=== PATIENT | female | born 1960 | race Caucasian/White ===

== ENCOUNTER 2017-12-09 05:43 | Day surgery (SDC) | payer OTHER ==
[~2017-12-09] VITALS: Ht 162.6 cm; Wt 96.2 kg
--- NOTE | ~2017-12-09 | PATH ---
[facility] [address] [place] [address] PATHOLOGY RPT PROCEDURE Name: RANCHO ALCAZAR Room #: DEP [facility].#: [id number] Admission: 12/09/17 Date of : 60 Discharge: 12/10/17 Report #: [id number] Path Case #: [id number] [facility] Accession Number: [id number] . 01 Material submitted: . RIGHT INFERIOR PARATHYROID ADENOMA - FS . 01 Clinical history: . Hyperparathyroidism . 02 Diagnosis: Parathyroid, right inferior parathyroid adenoma, parathyroidectomy: - Consistent with a parathyroid adenoma, 1.2 grams. - Completely excised. (IUV/db; 12/09/17) LBQ/12/12/2017 . 02 Electronically signed: . Lisa Billy MD, Pathologist NPI- [id number] . 01 Gross description: . Received fresh from the OR labeled with the patient's name, and "right inferior parathyroid adenoma" consists of a 1.2 gram oval red-brown tissue with a shiny capsule measuring 2.0 x 1.2 x 0.6 cm. The capsule is inked black and at this point subsequently serially sectioned and a payable representative section is submitted for frozen section as FSA1, this is subsequently submitted for permanent sections as A1. The unfrozen portion of the specimen is submitted entirely as A2. (IUV:pit 12/12/2017) . Frozen section diagnosis: FSA1, Right inferior parathyroid adenoma, excision: - 1.2 gram hypercellular parathyroid tissue. - These findings are discussed with Dr. Chad Payton in OR 1 at [facility] and a written report is placed in the patient's chart. . Frozen section performed by Dr. Lisa Billy at [facility], [address] [place] [address]. / . 02 Pathologist provided ICD-10: D35.1 . 02 CPT . 374150, [id number] [place] [address] PATHOLOGY RPT PROCEDURE Name: RANCHO ALCAZAR Room #: DEP [facility]#: [id number] Admission: 12/09/17 Date of : 60 Discharge: 12/10/17 Report #: [id number] Path Case #: [id number] Performed at: 01 [facility] Keenan Mcginnis [address], [place] [id number] MD Bear Britt MD Phone: [phone] Performed at: [address] [id number] MD Lisa Billy MD Phone: [phone]
--- NOTE | ~2017-12-09 | O ---
[facility] [place] [address] OPERATIVE REPORT Name: RANCHO ALCAZAR Room #: 201-P REG [facility]#: [id number] Admission: 12/09/17 Attend Phys: Chad Payton MD Discharge: Date of : 60 Report #: [id number] THIS REPORT FOR: //name// CC: Watson Payton DATE OF SERVICE: 12/09/2017 PREOPERATIVE DIAGNOSIS: Primary hyperparathyroidism. POSTOPERATIVE DIAGNOSES: Primary hyperparathyroidism, right inferior parathyroid adenoma. OPERATION: Gamma guided parathyroidectomy with intraoperative nerve monitoring and intraoperative PTH monitoring. SURGEON: Chad Payton MD TREATMENT TECHNICIAN: Medical student, PERCY Shea. ANESTHESIA: General. DESCRIPTION OF PROCEDURE: The patient was taken to nuclear medicine and the radiologist injected the sestamibi isotope marker as per protocol. Two hours later, the patient was brought to the OR for a general anesthetic. The patient was placed in the supine position with the neck gently extended. The upper chest and neck were prepped with ChloraPrep solution. Sterile drapes were applied. We knew from the preoperative studies that the patient had primary hyperparathyroidism and a suspected adenoma on the right side of the neck based on the preoperative sestamibi scan. Accordingly, a short incision was made on the right side of the neck along the skin line. We utilized the gamma probe to help guide the surgery. The incision was carried down through the skin and subcutaneous layer and then through the platysma. The skin flaps were developed superiorly and inferiorly. The fascia was divided in the midline and strap muscles were retracted laterally. The right lobe of the thyroid was examined and was found to be normal. The right lobe of the thyroid was mobilized medially and this allowed access to the tissues lateral and inferior and behind the thyroid. The middle thyroid veins were controlled using Harmonic scalpel. We utilized the NIMs device to help identify and monitored nerve integrity. The right lobe of the thyroid was further mobilized and we found a classic appearing parathyroid adenoma in the right inferior location, which was carefully dissected away from surrounding tissues, controlling the blood supply using Harmonic scalpel. Care was taken to avoid injury to the recurrent nerve, then we confirmed function of the nerve after removal of the tumor. The right superior parathyroid gland looked small and normal. After removal of the [address] [address] OPERATIVE REPORT Name: RANCHO ALCAZAR Room #: 201-P [facility]#: [id number] Admission: 12/09/17 Attend Phys: Chad Payton MD Discharge: Date of : 60 Report #: [id number] parathyroid adenoma, the pathologist confirmed a 1200 mg adenoma on frozen section. The pre-excision PTH level was 127. Ten minutes after removal of the tumor, the PTH level had dropped nicely to 64, which indicated a nice drop. Hemostasis was excellent. The sponge, instrument and needle counts were reported as correct. The incision was closed in layers using running 3-0 Vicryl for the midline fascia, interrupted 3-0 Vicryl for the platysma, and running PDS for the subcuticular layer. Sterile dressings were applied and the patient was taken to recovery in satisfactory condition. Estimated blood loss was less than 10 mL. <ELECTRONICALLY SIGNED> By: Chad Payton MD 12/10/17 1126 [id number] 1435 Chad Payton MD /nt
--- NOTE | ~2017-12-09 | EKG ---
[address] [address] ELECTROCARDIOGRAM REPORT Name: RANCHO ALCAZAR Room #: [address] [place] [address]#: [id number] Admission: 12/09/17 Attend Phys: Chad Payton MD Discharge: Date of : 60 Report #: [id number] THIS REPORT FOR: //name// [facility] Test Date: 2017-12-09 Test Time: 06:52:44 Pat Name: RANCHO ALCAZAR Department: Room: [facility] Gender: F Management Professional: MAYDA : 1960 Requested By: Chad Payton Order Number: [id number] MD: Fredy Chavarria Measurements Intervals [place] Rate: 81 P: 28 HI: 134 QRS: 49 QRSD: 84 T: 40 QT: 368 QTc: 428 Interpretive Statements Sinus rhythm No significant abnormality No previous ECG available for comparison Electronically Signed On 12-09-2017 8:14:25 CDT by Fredy Chavarria [email or web address] <ELECTRONICALLY SIGNED> By: Fredy Chavarria MD, [facility] 12/09/17 0814 0652 1 Fredy Chavarria MD, FACC /EPI
[~2017-12-09 05:43] MED LIST: ASPIR 8181 MG PO; ATORVASTATIN CA40 MG PO; AZELASTINE137 MCG/0. NASAL; FENOFIBRATE145 MG PO; FLONASE 0.05%50 MCG NASAL; FOSINOPRIL SODI20 M1 PO; GABAPENTIN600 M1 PO; HYDROCHLOROTH12.5 M2 PO; HYDROCHLOROTHIA25 M2 PO; LIDODERM1 EACH TOP; LOVAZA1000 MG PO; NORCO 5-325 TA1 EACH PO; PATADAY2.5 ML OPHTHALMIC; PRILOSEC 20 MG20 MG PO; PROZAC20 MG PO; SINGULAIR 10 MG10 M1 PO; SYMBICORT160 MCG/4. INH; VITAMIN B-12500 MCG PO; VITAMIN B-625 MG PO; VITAMIN D50000 UNIT PO; XANAX 0.5 MG0.5 MG PO
[2017-12-09 07:10] LABS: HEMATOCRIT 37.7 % (37.0-47.0); HEMOGLOBIN 12.5 gm/dL (12.0-15.0); MCH 26.7 pg (26.0-34.0); MCHC 33.1 g/dL (28.0-37.0); MCV 80.8 fL (80.0-100.0); RBC 4.67 mil/uL (4.20-5.00); RDW 15.5 % (10.5-14.5); WBC 7.8 thou/uL (4.0-11.0)
[2017-12-09 07:27] VITALS: BP 151/88
[2017-12-09 07:30] LABS: CALCIUM 10.8 mg/dL (8.5-10.1); CREATININE 1.1 mg/dL (0.6-1.0); POTASSIUM 3.9 mmol/L (3.5-5.1)
[2017-12-09 07:36] LABS: ALBUMIN 3.7 g/dL (3.4-5.0); TOTAL BILIRUBIN 0.3 mg/dL (<0.1-1.0); TOTAL PROTEIN 7.8 g/dL (6.4-8.2)
[2017-12-09 20:15] VITALS: BP 134/72
[2017-12-09 23:38] VITALS: BP 134/66
[2017-12-10 03:23] VITALS: BP 136/77
[2017-12-10 07:59] VITALS: BP 126/74
== END 2017-12-10 14:45 | disposition home or self-care (01) ==
LOC: OR 05:43 → TBA 05:43 → OR 07:50 → 2N 15:34 → OR 16:42
PROVIDERS: Specialist
DX: E21.0 Primary hyperparathyroidism (principal); D35.1 Benign neoplasm of parathyroid gland; F41.9 Anxiety disorder, unspecified; J45.909 Unspecified asthma, uncomplicated; I10 Essential (primary) hypertension; E78.00 Pure hypercholesterolemia, unspecified; K21.9 Gastro-esophageal reflux disease without esophagitis; M19.90 Unspecified osteoarthritis, unspecified site; Z98.890 Other specified postprocedural states; Z87.891 Personal history of nicotine dependence; Z79.899 Other long term (current) drug therapy; Z90.710 Acquired absence of both cervix and uterus; Z96.652 Presence of left artificial knee joint; Z88.2 Allergy status to sulfonamides; Z88.8 Allergy status to other drugs, medicaments and biological substances; Z79.82 Long term (current) use of aspirin
CPT/HCPCS: 10797; 50010; 50101; 50386; 50403; 52190; 52220; 56524; 56526; 57127; 62110; 62900; 70005